=== PATIENT | female | born 1970 | race Caucasian/White ===

== ENCOUNTER 2017-02-14 17:51 | Emergency (ER) | payer OTHER | END 2017-02-15 00:29 | disposition home or self-care (01) | LOC: FER 17:51 | DX: S40.021A Contusion of right upper arm, initial encounter (principal); M25.511 Pain in right shoulder; M25.521 Pain in right elbow; M79.631 Pain in right forearm; M25.531 Pain in right wrist; F32.9 Major depressive disorder, single episode, unspecified; K21.9 Gastro-esophageal reflux disease without esophagitis; F17.210 Nicotine dependence, cigarettes, uncomplicated; Z79.899 Other long term (current) drug therapy; W01.10XA Fall on same level from slipping, tripping and stumbling with subsequent striking against unspecified object, initial encounter; Y92.69 Other specified industrial and construction area as the place of occurrence of the external cause; Y99.0 Civilian activity done for income or pay | CPT/HCPCS: 73030; 73060; 73090; 73130 ==